=== PATIENT | male | born 1945 | race Caucasian/White ===

== ENCOUNTER 2019-09-05 18:44 | Observation (INO) ==
[2019-09-05 19:21] LABS: Basophils % 0.2 %; Eosinophils % 0.4 %; Hematocrit 38.7 % (37.5-50.1); Hemoglobin 13.5 g/dL (12.9-16.9); Immature Granulocytes % 0.6 % (0-4); Lymphocytes # 1.2 K/mcL (0.6-4.6); Lymphocytes % 24.6 %; Mean Corpuscular HGB Conc 34.9 g/dL (31.6-35.5); Mean Corpuscular Hemoglobin 34.4 pg (28.0-33.3); Mean Corpuscular Volume 98.5 fL (83.0-100.0); Mean Platelet Volume 9.3 fL (9.4-12.4); Monocytes # 0.8 K/mcL (0.0-1.3); Monocytes % 15.3 %; Neutrophils # 2.9 K/mcL (1.6-8.9); Platelet Count 265 K/mcL (140-400); Red Blood Count 3.93 M/mcL (4.19-5.50); Red Cell Distribution Width 13.5 % (11.5-14.5); Segmented Neutrophils % 58.9 %; White Blood Count 4.9 K/mcL (4.3-11.1)
[2019-09-05 19:53] LABS: BUN/Creatinine Ratio 17 (6-26); Blood Urea Nitrogen 24 mg/dL (8-23); Calcium 8.9 mg/dL (8.6-10.3); Carbon Dioxide 28 mEq/L (23-29); Chloride 101 mEq/L (98-107); Glucose 139 mg/dL (70-105); Osmolality,Calculated 292 (280-300); Potassium 3.8 mEq/L (3.5-5.1); Sodium 138 mEq/L (136-145); Troponin I < 0.03 ng/mL (< 0.04); eGFR For African Americans > 60 (> 60); eGFR For Non-African Americans 50 (> 60)
[2019-09-05] MEDS: 0.9 % Sodium Chloride 1,000 ML IVC SCH (20:08)
[2019-09-05] MEDS ORDERED: Naloxone 0.4 MG/ML INJ IVP PRN (22:18)
[2019-09-05] MEDS ORDERED: Ondansetron 4 MG/2 ML VIAL IVP PRN (22:18)
[2019-09-05] MEDS: Acetaminophen 325 MG TABLET PO PRN (22:34)
[2019-09-05] MEDS: Ipratropium/Albuterol Neb 3 ML IH SCH (23:44)
[2019-09-06 01:30] LABS: Basophils % 0.2 %; Eosinophils % 0.7 %; Hematocrit 34.5 % (37.5-50.1); Immature Granulocytes % 0.5 % (0-4); Lymphocytes # 1.2 K/mcL (0.6-4.6); Lymphocytes % 26.5 %; Mean Corpuscular HGB Conc 34.8 g/dL (31.6-35.5); Mean Corpuscular Hemoglobin 34.1 pg (28.0-33.3); Mean Platelet Volume 9.7 fL (9.4-12.4); Monocytes # 0.7 K/mcL (0.0-1.3); Monocytes % 15.4 %; Neutrophils # 2.5 K/mcL (1.6-8.9); Platelet Count 243 K/mcL (140-400); Red Blood Count 3.52 M/mcL (4.19-5.50); Red Cell Distribution Width 13.6 % (11.5-14.5); Segmented Neutrophils % 56.7 %; White Blood Count 4.4 K/mcL (4.3-11.1)
[2019-09-06 01:32] LABS: Prothrombin Time 11.7 Seconds (9.4-12.1)
[2019-09-06 01:49] LABS: BUN/Creatinine Ratio 18 (6-26); Blood Urea Nitrogen 21 mg/dL (8-23); Calcium 8.2 mg/dL (8.6-10.3); Carbon Dioxide 28 mEq/L (23-29); Chloride 103 mEq/L (98-107); Glucose 164 mg/dL (70-105); Magnesium 1.9 mg/dL (1.6-2.6); Osmolality,Calculated 289 (280-300); Phosphorous 2.9 mg/dL (2.7-4.5); Potassium 3.6 mEq/L (3.5-5.1); Sodium 136 mEq/L (136-145); eGFR For African Americans > 60 (> 60); eGFR For Non-African Americans > 60 (> 60)
[2019-09-06] MEDS: Ipratropium/Albuterol Neb 3 ML IH SCH ×6 (03:35→23:56)
[2019-09-06] MEDS: 0.9 % Sodium Chloride 1,000 ML IVC SCH ×2 (04:52→18:15)
[2019-09-06] MEDS: *HR* Heparin 5,000 UNIT/ML VIAL SQ SCH ×3 (04:52→21:33)
[2019-09-06] MEDS: amLODIPine 5 MG TABLET PO SCH (08:49)
[2019-09-06] MEDS: Aspirin Enteric Coated 81 MG Tablet PO SCH (08:49)
[2019-09-06] MEDS: Pyridostigmine Br 60 MG TABLET PO SCH ×3 (08:49→21:32)
[2019-09-06] MEDS ORDERED: *HR* Amiodarone 200 MG TABLET PO SCH (09:00)
[2019-09-06] MEDS: cefTRIAXone 1,000 MG in Water for inj. (sterile) 10 ML IVP SCH (11:52)
[2019-09-06] MEDS: Azithromycin 500 MG in 0.9 % Sodium Chloride 250 ML IVPB SCH (11:52)
[2019-09-06] MEDS: Acetaminophen 325 MG TABLET PO PRN ×2 (11:53→21:31)
[2019-09-06 17:22] LABS: Basophils % 0.3 %; Eosinophils % 0.5 %; Hematocrit 36.6 % (37.5-50.1); Hemoglobin 12.6 g/dL (12.9-16.9); Immature Granulocytes % 0.8 % (0-4); Lymphocytes # 1.4 K/mcL (0.6-4.6); Lymphocytes % 35.8 %; Mean Corpuscular HGB Conc 34.4 g/dL (31.6-35.5); Mean Corpuscular Hemoglobin 33.7 pg (28.0-33.3); Mean Corpuscular Volume 97.9 fL (83.0-100.0); Mean Platelet Volume 9.2 fL (9.4-12.4); Monocytes # 0.5 K/mcL (0.0-1.3); Neutrophils # 1.9 K/mcL (1.6-8.9); Platelet Count 249 K/mcL (140-400); Red Blood Count 3.74 M/mcL (4.19-5.50); Red Cell Distribution Width 13.4 % (11.5-14.5); Segmented Neutrophils % 48.6 %; White Blood Count 3.9 K/mcL (4.3-11.1)
[2019-09-06] MEDS ORDERED: Gabapentin 300 MG CAPSULE PO SCH (21:00)
[2019-09-07] MEDS: 0.9 % Sodium Chloride 1,000 ML IVC SCH (03:32)
[2019-09-07] MEDS: Ipratropium/Albuterol Neb 3 ML IH SCH ×4 (04:03→15:45)
[2019-09-07 05:13] LABS: Basophils % 0.3 %; Eosinophils % 0.6 %; Hemoglobin 11.4 g/dL (12.9-16.9); Immature Granulocytes % 0.9 % (0-4); Lymphocytes # 1.5 K/mcL (0.6-4.6); Lymphocytes % 43.8 %; Mean Corpuscular HGB Conc 34.5 g/dL (31.6-35.5); Mean Corpuscular Hemoglobin 33.5 pg (28.0-33.3); Mean Corpuscular Volume 97.1 fL (83.0-100.0); Mean Platelet Volume 9.5 fL (9.4-12.4); Monocytes # 0.5 K/mcL (0.0-1.3); Monocytes % 13.1 %; Neutrophils # 1.5 K/mcL (1.6-8.9); Platelet Count 226 K/mcL (140-400); Red Cell Distribution Width 13.5 % (11.5-14.5); Segmented Neutrophils % 41.3 %; White Blood Count 3.5 K/mcL (4.3-11.1)
[2019-09-07] MEDS: *HR* Heparin 5,000 UNIT/ML VIAL SQ SCH ×2 (05:19→17:11)
[2019-09-07 05:39] LABS: BUN/Creatinine Ratio 13 (6-26); Blood Urea Nitrogen 13 mg/dL (8-23); Calcium 8.1 mg/dL (8.6-10.3); Carbon Dioxide 26 mEq/L (23-29); Chloride 106 mEq/L (98-107); Glucose 132 mg/dL (70-105); Osmolality,Calculated 294 (280-300); Potassium 3.5 mEq/L (3.5-5.1); Sodium 141 mEq/L (136-145); eGFR For African Americans > 60 (> 60); eGFR For Non-African Americans > 60 (> 60)
[2019-09-07] MEDS ORDERED: Regadenoson 0.4 MG/5 ML SYRINGE IVP ONE (06:28)
[2019-09-07] MEDS: Pyridostigmine Br 60 MG TABLET PO SCH ×2 (11:18→16:37)
[2019-09-07] MEDS: amLODIPine 5 MG TABLET PO SCH (11:18)
[2019-09-07] MEDS: cefTRIAXone 1,000 MG in Water for inj. (sterile) 10 ML IVP SCH (11:19)
[2019-09-07] MEDS: Aspirin Enteric Coated 81 MG Tablet PO SCH (11:19)
[2019-09-07] MEDS: Azithromycin 500 MG in 0.9 % Sodium Chloride 250 ML IVPB SCH (11:21)
[2019-09-07 13:51] LABS: Hematocrit 36.9 % (37.5-50.1); Hemoglobin 12.8 g/dL (12.9-16.9)
[2019-09-07 15:15] VITALS: BP 170/81
[2019-09-07] MEDS ORDERED: Cefdinir 300 MG CAPSULE PO SCH (21:00)
[2019-09-08] MEDS ORDERED: Isosorbide MONOnitrate (24 HR) 30 MG TAB.ER.24H PO SCH (09:00)
== END 2019-09-07 17:48 | disposition home or self-care (01) ==
LOC: 2ANU 18:44 → EMEROOARM 18:44 → SUATTDRO 20:41 → 2ANU 21:11
PROVIDERS: ADMIT Internal Medicine; ATTEND Student in an Organized Health Care Education/Training Program